=== PATIENT | female | born 1985 | race Caucasian/White ===

== ENCOUNTER → 2018-06-20 | Outpatient (CLI) | payer BC ==
--- NOTE | 2018-06-20 19:57 | CT ---
EXAM: Head CLINICAL INDICATION: 33-year-old female with headache. COMPARISON: None. TECHNIQUE: CT brain without contrast. This exam was performed according to our departmental dose optimization program which includes use of automated exposure control, adjustment of the mA and/or kV according to patient size and/or use of iterative reconstruction technique. FINDINGS: The ventricles, sulci, and cisterns are within normal limits. The al-white matter differentiation is preserved. There is no mass effect, midline shift, intra- or extra-axial fluid collection/acute hemorrhage. The osseous structures are unremarkable. The paranasal sinuses and mastoid air cells are clear. IMPRESSION: No acute intracranial abnormalities. Electronically signed by: Alicja Tompkins MD 06/20/2018 7:54 PM CDT
== END ==
LOC: CT 18:59
PROVIDERS: ATTEND Nurse Practitioner Family
DX: R51 Headache (principal)

== ENCOUNTER 2019-02-18 00:59 | Emergency (ER) | payer BC ==
[2019-02-18] MEDS ORDERED: SODIUM CHLORIDE 0.9% (FLUSH) 10 ML SYG IV PRN (01:01)
--- NOTE | 2019-02-18 01:06 | ED.PDOC ---
History of Present Illness - General Time Seen by Provider: 02/18/19 01:00 Source: patient - History of Present Illness Initial Comments: 33 yo female with PMH of morbid obesity, PCOS, s/p gastric sleeve 05/2018 who presents with cc of abdominal pain. Located to LUQ, onset suddenly about 2 hours ago without any known inciting factors, sharp/stabbing, 9/10, constant, radiating across upper abdomen and chest and through to the back, worse with lying back, improving with leaning forward, nothing tried for relief, no hx of similar sx's. Also reports sudden onset of nausea and dark emesis for past 2 hours. Reports chills but no fevers as well as orange urination but denies any dysuria/hematuria. States she had some acute abd pain 3 weeks ago and was seen at an ED in [place], [place] where she was diagnosed with gallstones. She is scheduled for outpatient cholecystectomy in 2 weeks from now. Pt feels this is a "gallbladder attack." Reports hx of gastric sleeve done in [facility] in 05/2018 and reports 127 lb weight loss since then. Allergies/Adverse Reactions: Allergies Latex Allergy (Mild, Verified 02/18/19 01:34) Rash Cefprozil [From Cefzil] Allergy (Unknown, Verified 02/18/19 01:27) Loracarbef [From Lorabid] Allergy (Unknown, Verified 02/18/19 01:27) Penicillins Allergy (Unknown, Verified 02/18/19 01:27) NSAIDs Allergy (Verified 02/18/19 01:27) Home Medications: Ambulatory Orders Desogestrel & Ethinyl Estradio [Apri] 1 tab PO DAILY #0 tab 04/12/13 HYDROcodone 7.5MG/APAP 325MG [[place] 7.5/325] 1 ea PO .Q8 PRN #12 tab 04/12/13 Ibuprofen [Motrin] 800 mg PO .Q8 PRN #22 tab 04/12/13 Ondansetron Odt (ER Disp) [Zofran ODT (ER DISP)] 8 mg PO Q8H PRN 3 Days #4 tab 02/18/19 Review of Systems - Review of Systems Review of Systems: 02/18/19 01:34 as per HPI All other Systems: Reviewed and Negative Past Medical History (General) - Patient Medical History Hx Diabetes: No - Female History Hx Last Menstrual Period: 07/05/12 Expected Date of Delivery:: 04/11/13 Family Medical History - Family History Mother Family History: Unknown Physical Exam - Physical Exam General Appearance: Alert, No apparent distress, Obese, Well Developed, Well Hydrated, Well Nourished Eye Exam: bilateral normal Ears, Nose, Throat: hearing grossly normal, normal ENT inspection, normal pharynx Neck: non-tender, full range of motion, supple, normal inspection Respiratory: chest non-tender, lungs clear, normal breath sounds, no respiratory distress Cardiovascular/Chest: normal peripheral pulses, regular rate, rhythm, no edema, no murmur Gastrointestinal/Abdominal: normal bowel sounds, soft, tenderness - marked to LUQ, epigastric, RUQ Back Exam: normal inspection, no CVA tenderness Extremity: normal range of motion, non-tender, normal inspection, no pedal edema, no calf tenderness 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 A/P obtained and reveals no acute processes. 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 Discussed findings. Doubtful of emergent causes given pt stability and reassuring work-up. Advised remaining well-hydrated and advancing diet as able. Will give Rx of Zofran PRN. Advised close f/u with PCP. -dc home in good condition Eleazar Lockhart MD Billing #[id number] - Results/Orders Results/Orders: 02/18/19 01:01 IV Care:Saline Lock per Protoc QSHIFT Sodium Chloride 0.9% (Flush) [Saline Flush Syringe] 10 ml IV PRN PRN 02/18/19 01:54 Hold Metformin x 48Hrs [id number] Laboratory Results - last 24 hr 02/18/19 02/18/19 02/18/19 01:18 01:18 01:35 WBC 7.5 RBC 4.77 Hgb 12.7 Hct 38.7 MCV 81.0 MCH 26.7 L MCHC 32.9 L RDW 15.3 H Plt Count 191 MPV 9.0 Absolute Neuts (auto) 4.20 Absolute Lymphs (auto) 2.70 Absolute Monos (auto) 0.40 Absolute Eos (auto) 0.20 Absolute Basos (auto) 0.10 Neutrophils % 56.1 Lymphocytes % 35.5 Monocytes % 5.0 Eosinophils % 2.6 Basophils % 0.8 Sodium 140 Potassium 3.9 Chloride 107 Carbon Dioxide 24 Anion Gap 12.9 BUN 10 Creatinine 0.63 BUN/Creatinine Ratio 15.9 Random Glucose 96 Serum Osmolality 278.3 Calcium 9.3 Total Bilirubin 0.6 Direct Bilirubin 0.3 H Indirect Bilirubin 0.3 AST 85 H ALT 63 H Alkaline Phosphatase 86 Serum Total Protein 7.0 Albumin 4.2 Lipase 32 Urine Color Urine Appearance Urine pH Ur Specific [place] Urine Protein Urine Glucose (UA) Urine Ketones Urine Blood Urine Nitrite Urine Bilirubin Urine Urobilinogen Ur Leukocyte Esterase Urine RBC Urine WBC Ur Epithelial Cells Urine Bacteria Urine HCG, Qual Negative 02/18/19 01:35 WBC RBC Hgb Hct MCV MCH MCHC RDW Plt Count MPV Absolute Neuts (auto) Absolute Lymphs (auto) Absolute Monos (auto) Absolute Eos (auto) Absolute Basos (auto) Neutrophils % Lymphocytes % Monocytes % Eosinophils % Basophils % Sodium Potassium Chloride Carbon Dioxide Anion Gap BUN Creatinine BUN/Creatinine Ratio Random Glucose Serum Osmolality Calcium Total Bilirubin Direct Bilirubin Indirect Bilirubin AST ALT Alkaline Phosphatase Serum Total Protein Albumin Lipase Urine Color Yellow Urine Appearance Clear Urine pH 7.0 Ur Specific [place] 1.015 Urine Protein Negative Urine Glucose (UA) Negative Urine Ketones Negative Urine Blood Negative Urine Nitrite Negative Urine Bilirubin Negative Urine Urobilinogen 4.0 H Ur Leukocyte Esterase Negative Urine RBC 0-1 Urine WBC 1-3 Ur Epithelial Cells 5-10 Urine Bacteria 1+ Urine HCG, Qual Departure - Departure Clinical Impression: Gastroenteritis Time of Disposition: 03:40 Disposition: Discharge to Home or Self Care Condition: Good Instructions: DI for Abdominal Pain-Adult Diet: resume usual diet Referrals: Chance Ozuna MD [Primary Care Provider] - 1-2 Weeks Prescriptions: Ondansetron Odt (ER Disp) [Zofran ODT (ER DISP)] 8 mg PO Q8H PRN 3 Days #4 tab PRN Reason: Nausea Home Medications: Ambulatory Orders Desogestrel & Ethinyl Estradio [Apri] 1 tab PO DAILY #0 tab 04/12/13 HYDROcodone 7.5MG/APAP 325MG [[place] 7.5/325] 1 ea PO .Q8 PRN #12 tab 04/12/13 Ibuprofen [Motrin] 800 mg PO .Q8 PRN #22 tab 04/12/13 Ondansetron Odt (ER Disp) [Zofran ODT (ER DISP)] 8 mg PO Q8H PRN 3 Days #4 tab 02/18/19 Additional Instructions: Remain well hydrated and gradually advance your diet and activity level as tolerated. Take the Zofran as directed for nausea. Return if any new or concerning symptoms arise. Follow up closely with your primary care doctor as scheduled or sooner as needed.
[2019-02-18] MEDS ORDERED: ONDANSETRON INJ 4 MG/2 ML VIAL IV ONE (01:28)
[2019-02-18] MEDS ORDERED: SODIUM CHLORIDE 0.9% 1000ML 1,000 ML IVS ONE (01:28)
[2019-02-18] MEDS ORDERED: MORPHINE SULFATE INJ 10 MG/ML VIAL IV ONE (01:57)
[2019-02-18 03:16] VITALS: O2SAT 99
--- NOTE | 2019-02-18 03:20 | RAD ---
EXAM DESCRIPTION: Chest,1 View CLINICAL HISTORY: 33 years Female, LUQ pain radiating into chest COMPARISON: None. FINDINGS: No consolidation. No pneumothorax. No significant pleural effusion. Cardiomediastinal silhouette is unremarkable. Osseous structures are unremarkable. IMPRESSION: No acute findings. 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
--- NOTE | 2019-02-18 03:34 | CT ---
CT ABDOMEN PELVIS WITH IV CONTRAST Exam date: February 18, 2019 Comparison: None Indication: Abdominal pain Technique: Multiple helical axial images were obtained through the abdomen and pelvis using intravenous contrast. Coronal and sagittal reformatted images were obtained. All CT scans at this facility use dose modulation, iterative reconstruction, and/or weight-based dosing when appropriate to reduce radiation dose to as low as reasonably achievable. Findings: Lung bases: [Appear unremarkable]. Liver: [Homogenous attenuation is noted.] Gallbladder/biliary: [Appears unremarkable] Pancreas: [Unremarkable. No evidence of ductal enlargement.] Spleen: Appears unremarkable. No splenomegaly. Adrenals: Unremarkable. Kidneys and ureters: [No evidence of hydronephrosis. Normal enhancement.] Bladder: Unremarkable. Pelvic organs: There is a 2.5 cm left ovarian cyst which is likely benign. Bowel: [Postoperative changes of the stomach noted. No evidence of bowel obstruction. No bowel wall thickening.] Appendix is surgically absent. Vasculature: Unremarkable. Peritoneum: No free air. No significant free fluid. Lymph nodes: Unremarkable. Soft tissues: Unremarkable. Bones: Unremarkable. Impression: No evidence for an acute process within the abdomen or pelvis. 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
[2019-02-18] MEDS ORDERED: ONDANSETRON ODT (ER DISP) 8 MG TAB PO ONE (03:50)
[2019-02-18 03:58] VITALS: BP 124/75; TEMP 97.2
== END 2019-02-18 04:00 | disposition home or self-care (01) ==
LOC: ER 00:59
DX: K52.9 Noninfective gastroenteritis and colitis, unspecified (principal); N83.202 Unspecified ovarian cyst, left side; E66.01 Morbid (severe) obesity due to excess calories; Z98.84 Bariatric surgery status; Z91.040 Latex allergy status; Z88.1 Allergy status to other antibiotic agents; Z88.6 Allergy status to analgesic agent; Z88.0 Allergy status to penicillin; Z68.32 Body mass index [BMI] 32.0-32.9, adult
CPT/HCPCS: 71045; 74177; 80048; 80076; 81001; 81025; 83690; 85025; J2270; J2405; J7030